=== PATIENT | male | born 1975 | race Caucasian/White ===

== ENCOUNTER → 2016-12-05 | Outpatient (CLI) | payer BC | LOC: CIMAGING 16:51 | PROVIDERS: ATTEND Surgery | DX: N43.3 Hydrocele, unspecified (principal) | CPT/HCPCS: 76870-PO ==

== ENCOUNTER 2017-11-08 18:06 | Emergency (ER) | payer BC ==
[2017-11-08 18:29] VITALS: O2SAT 96
--- NOTE | 2017-11-08 19:19 | EDPHY ---
H & P Time Seen by Provider: 11/08/17 18:48 HPI/ROS: This patient complains of URI symptoms consisting of nasal congestion and a cough the attributes to postnasal drip. He reports a sore throat in addition 1 weeks duration 3/10 intensity. He gets partial relief from [id number] analgesics and notes no other exacerbating factors. He reports that he also had a URI 3 weeks ago. He that illness same to improve and resolve for handful of days prior to the onset of this illness. His current episode is been present for 1 week. ROS: Low-grade subjective fevers. No other constitutional symptoms HEENT: Mild intermittent sinus pressure but none currently. No ear pain. Feel that some discomfort at the angle of the mandible on the left side of the past couple days. He reports having had discharge from his eyes earlier in the illness but that has resolved. Pulmonary: No pleuritic pain, dyspnea or hemoptysis. Cardiovascular: No complaints GI: No nausea vomiting or diarrhea Integumentary: No skin rash 7 point ROS is otherwise negative Past Medical/Surgical History: Otherwise healthy Social History: Patient has 2 young children who have recently had URIs. Smoking Status: Former smoker Physical Exam: Physical Exam Vital signs are normal. General: No acute distress HEENT: Nose: Clear discharge bilaterally. No sinus tenderness to percussion. Ears: External canals and tympanic membranes are clear with no erythema or abnormal findings bilaterally. Oropharynx: No erythema or exudates. No dysphonia. No drooling or stridor. Eyes: Pupils equal and react to light. Extraocular motions are intact. Neck: Supple with no meningismus. No lymphadenopathy Lungs: Clear to auscultation bilaterally with no rales, rhonchi or wheeze. No respiratory distress. Cardiac: Regular rate and rhythm with no murmur gallop or rub Skin: No rash or pallor. Neuro: Alert with no focal deficits noted. Initial differential diagnosis: Viral URI, strep pharyngitis, viral pharyngitis Constitutional: Initial Vital Signs Temperature (C) 37.2 C 11/08/17 18:27 Heart Rate 78 11/08/17 18:27 Respiratory Rate 18 11/08/17 18:27 Blood Pressure 114/62 11/08/17 18:27 O2 Sat (%) 96 11/08/17 18:27 O2 Delivery Mode Room Air Allergies/Adverse Reactions: No Known Allergies Allergy (Verified 10/17/15 19:32) Home Medications: Medication Instructions Recorded Flovent 110 MCG Hfa MDI (RX) 10/17/15 Fluticasone Hfa 220 Mcg [Flovent 2 puffs IH DAILY #1 mdi 10/17/15 220 MCG Hfa MDI (*)] Multi-Day Vitamins 10/17/15 Omeprazole 10/17/15 ZyrTEC 10 mg (RX) 10/17/15 Fluticasone Nasal [Flonase Nasal 2 sprays NASAL DAILY #1 mdi 11/08/17 [place] (RX)] MDM/Departure - MDM Diagnostics: Rapid strep is negative. ED Course/Re-evaluation: I counseled this patient regarding viral URI. He appears clinically well without findings that would suggest bacterial sinusitis, lower respiratory infection or other complicating factors. - Depart Disposition: Home, Routine, Self-Care Clinical Impression: Viral pharyngitis, Viral upper respiratory infection Condition: Good Instructions: Pharyngitis (ED), Upper Respiratory Infection (ED) Additional Instructions: Diagnoses: 1. Viral upper respiratory infection 2. Viral pharyngitis Plan: Humidifier Guaifenesin mucolytic Flonase steroid nasal spray Ibuprofen your symptoms should improve over the next 3-7 days. Return for any significant worsening despite treatment plan Prescriptions: Fluticasone Nasal [Flonase Nasal [place] (RX)] 2 sprays NASAL DAILY #1 mdi Referrals: Iván Espinoza MD [Primary Care Provider] - As per Instructions
[2017-11-08 23:23] VITALS: BP 118/72; PULSE 79; RESP 16; TEMP 98.8
== END 2017-11-08 19:35 | disposition home or self-care (01) ==
LOC: CED 18:06
DX: J02.8 Acute pharyngitis due to other specified organisms (principal); B97.89 Other viral agents as the cause of diseases classified elsewhere; J06.9 Acute upper respiratory infection, unspecified; Z87.891 Personal history of nicotine dependence
CPT/HCPCS: 87400-PO; 87880-PO